=== PATIENT | female | born 1955 | race Hispanic/Latino ===

== ENCOUNTER 2016-11-23 06:26 | Day surgery (SDC) | payer MEDICARE ==
[2016-11-13 11:58] VITALS: BMI 23.9
[2016-11-23] MEDS ORDERED: Lidocaine 1% Inj (20ml) ONE (08:11)
[2016-11-23] MEDS ORDERED: Propofol 10 mg/ml Inj (20 ML) ONE (08:11)
[2016-11-23] MEDS ORDERED: Sodium Chloride 0.9% 1,000 ML IV SCH (08:45)
[2016-11-23 10:12] VITALS: BP 95/44; PULSE 53; RESP 16; TEMP 09.2; O2SAT 98
== END 2016-11-23 10:13 | disposition home or self-care (01) ==
LOC: ENDO 06:26
PROVIDERS: ATTEND Internal Medicine Gastroenterology
DX: K28.9 Gastrojejunal ulcer, unspecified as acute or chronic, without hemorrhage or perforation (principal); Z98.84 Bariatric surgery status; K29.50 Unspecified chronic gastritis without bleeding; E78.5 Hyperlipidemia, unspecified; E03.9 Hypothyroidism, unspecified
CPT/HCPCS: 43239; 88305; 88342; J2704; J7040 ×2